=== PATIENT | male | born 1995 | race Caucasian/White ===

== ENCOUNTER 2019-03-10 15:05 | Emergency (ER) | payer OTHER, SELFPAY ==
[2019-03-10 15:11] VITALS: BP 127/79; PULSE 65; RESP 18; TEMP 36.6; O2SAT 100
[2019-03-10] MEDS: TET,DIPH,PERTUSS(ACELL),VAC/PF 0.5 ML SYRINGE IM (15:16)
[2019-03-10 16:48] VITALS: BP 118/73; PULSE 61; RESP 14; O2SAT 100
--- NOTE | 2019-03-10 22:33 | ED.WOUNDLAC ---
HPI - Wound/Laceration <TAMY Johnson - Last Filed: 03/10/19 23:06> General Chief Complaint: Wound/Laceration Stated Complaint: Cut on right leg, at work Time Seen by Provider: 03/10/19 15:29 Source: patient Mode of arrival: ambulatory Limitations: no limitations History of Present Illness HPI narrative: This is a 23-year-old male, nonsmoker, presents to ED with right anterior thigh laceration from a knife. Patient reports the injury happened at work when patient tried to cut the plastic straps with a knife accident he had missed and cut through his jeans and his upper leg at 2:50 p.m. today. Unknown last tetanus immunization date. Patient reports discomfort but was able to ambulate, he denies tingling numbness to right leg. Related Data Allergies Allergy/AdvReac Type Severity Reaction Status Date / Time Penicillins Allergy Verified 03/10/19 15:13 Review of Systems <TAMY Johnson - Last Filed: 03/10/19 23:06> Review of Systems ROS Unobtainable: All systems reviewed & are unremarkable except as noted in HPI and below PFSH <TAMY Johnson - Last Filed: 03/10/19 23:06> Medical History No significant past medical history (Acute) No significant past surgical history (Acute) Social History (Updated 03/10/19 @ 22:52 by TAMY Johnson) Smoking Status: Never smoker Social History Smoking Status: Never smoker Exam <TAMY Johnson - Last Filed: 03/10/19 23:06> Narrative Exam Narrative: General appearance: well developed, well nourished, in no acute distress. Head: normocephalic, atraumatic, no scalp lesions, non-tender. Eye: pupil equal, round. EOMI. Nose: nares patent. Oral: mucosa moist. Neck/Thyroid: neck supple, full range of motion, no visible masses. Skin: 3 cm laceration to right anterior mid thigh. no suspicious rashes, lesions over visible areas. Warm and dry. Heart: no clubbing, no cyanosis, no edema. Lungs: Breathing even and unlabored. No stridor. No accessory muscles used. Chest: normal shape and expansion. Abdomen: non-obese, non-distended. Neurologic: alert and oriented. Cognitive exam, ROAST [employer] and PNS grossly intact on informal exam. Psych: good eye contact, normal affect. Initial Vital Signs Initial Vital Signs: Vital Signs Temperature 97.8 F 03/10/19 15:11 Pulse Rate 65 03/10/19 15:11 Respiratory Rate 18 03/10/19 15:11 Blood Pressure 127/79 03/10/19 15:11 Pulse Oximetry 100 03/10/19 15:11 <Milena Jacob MD - Last Filed: 03/13/19 07:11> Initial Vital Signs Initial Vital Signs: Vital Signs Temperature 97.8 F 03/10/19 15:11 Pulse Rate 65 03/10/19 15:11 Respiratory Rate 18 03/10/19 15:11 Blood Pressure 127/79 03/10/19 15:11 Pulse Oximetry 100 03/10/19 15:11 Procedures <TAMY Johnosn - Last Filed: 03/10/19 23:06> Laceration Repair Laceration 1: Site: lower extremity (R anterior mid thigh) Side (If applicable): right Size (cm): 3 Description: linear Depth: simple, single layer Local Anesthetic: lidocaine 1% and with bicarb Amount of anesthesia used (mL): 5 Pre-repair: wound explored and irrigated extensively Skin layer closed with: nylon Size (cm): 4-0 Number of sutures: 5 Technique: simple, interrupted Course <TAMY Johnson - Last Filed: 03/10/19 23:06> Orders Ordered: Discontinued Medications Bacitracin (Bacitracin) 1 applic TOP NOW ONE Stop: 03/10/19 15:53 Diphtheria/Tetanus/Acell Pertussis (Adacel) 0.5 ml IM .ONCE ONE Stop: 03/10/19 15:13 Last Admin: 03/10/19 15:16 Dose: 0.5 ml Documented by: SONAM Lidocaine/Sodium Bicarbonate (Buffered Lidocaine 10 Ml Syr) 10 ml INJ NOW ONE Stop: 03/10/19 15:53 Vital Signs - 8 hr 03/10/19 15:11 03/10/19 16:48 Temperature 97.8 F Pulse Rate 65 61 Respiratory Rate 18 14 Blood Pressure 127/79 Blood Pressure [Left Arm] 118/73 Pulse Oximetry 100 100 <Milena Jacob MD - Last Filed: 03/13/19 07:11> Orders Ordered: Discontinued Medications Bacitracin (Bacitracin) 1 applic TOP NOW ONE Stop: 03/10/19 15:53 Diphtheria/Tetanus/Acell Pertussis (Adacel) 0.5 ml IM .ONCE ONE Stop: 03/10/19 15:13 Last Admin: 03/10/19 15:16 Dose: 0.5 ml Documented by: SONAM Lidocaine/Sodium Bicarbonate (Buffered Lidocaine 10 Ml Syr) 10 ml INJ NOW ONE Stop: 03/10/19 15:53 Vital Signs - 8 hr 03/10/19 15:11 03/10/19 16:48 Temperature 97.8 F Pulse Rate 65 61 Respiratory Rate 18 14 Blood Pressure 127/79 Blood Pressure [Left Arm] 118/73 Pulse Oximetry 100 100 MDM - Wound/Laceration <TAMY Johnson - Last Filed: 03/10/19 23:06> Differential Diagnosis Differential diagnosis: Likely laceration Medical Records Attestation: I reviewed the patient's medical records. MDM Narrative Medical decision making narrative: Accidental laceration from a knife on anterior right mid thigh at work. This has been repaired by suture, please see procedural note. Patient tolerated the procedure well. Discussed return precautions such as signs and symptoms for infection, wound care at home, dressing change in length. Dressing has been applied with bacitracin, Telfa, and curling. Tdap has been provided during this visit. Patient was advised to follow up with his PCP in 2 days for wound recheck. Suture removal in 10-14 days. Patient verbalized the treatment plan and no further questions were expressed at this time. L&I document has been completed. Patient informed there is no activity limitation from this. Discharge Plan Departure Patient Disposition: Home Clinical Impression: Laceration Discharge Date/Time: 03/10/19 16:58 Instructions: DI for Laceration Repair Activity Restrictions/Additional Instructions: You have been diagnosed with [laceration to anterior right thigh. Please do not get your wound soaked in the water until suture removal. Keep your dressing intact for next 24 hrs. After then, you could remove your dressing, wash with soap and water. Pat dry with clean papertowel and dress it with antibiotic ointment. You can change dressing as needed and daily. Please monitor for signs and symptoms for infection such as increasing redness, swelling, warmth, pain, fever, purulent discharge. If this occurs, please return to ED or follow up with your primary care physician since your wound may be gotten infected. Please follow up with your primary care provider in 2-3 days for recheck wound. Your suture should be removed [ 10-14 ] days. This can be done by your primary provider, walk-in clinic or here in ED. Please keep your wound clean, dry and intact all times]. What to do: *Take your medications as directed. You can take [id number] Tylenol and/or Motrin as needed for discomfort Referrals: Krish Pineda MD [Primary Care Provider] -
== END 2019-03-10 16:58 | disposition home or self-care (01) ==
PROVIDERS: Emergency Provider Nurse Practitioner Family; PCP Family Medicine
DX: S71.111A Laceration without foreign body, right thigh, initial encounter (principal); Z23 Encounter for immunization; Y99.0 Civilian activity done for income or pay
CPT/HCPCS: 12002; 90471; 99282; 99283; 90715